=== PATIENT | male | born 1960 | race Caucasian/White ===

== ENCOUNTER 2020-02-16 21:24 | Inpatient (IN) | payer MEDICAID ==
[~2020-02-16] VITALS: Ht 180.3 cm; Wt 54.3 kg
[2020-02-16] MEDS ORDERED: SODIUM CHLORIDE FLUSH 10ML SYR IVF ONE (21:30)
[2020-02-16] MEDS ORDERED: SODIUM CHLORIDE 0.9% 1,000 ML IV ONE (21:30)
--- NOTE | 2020-02-16 21:58 | NUR ---
pt bib ems from [facility]. pt having increased lethargy and disoriented. 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 pt has history of cirrosis as well. pt recieved 4mg morphine at 1700, rocephin iv at 1615, lactulose at 1835, and total 3 liter bolus for hypotention. pt placed on all monitors, another liter bag hung, warm blanket provided, erp evaluated pt, pt is a/ox4 at this time but is intermittently confused on place.
[2020-02-16] MEDS ORDERED: SPIR100T4 PO (22:04)
[2020-02-16] MEDS ORDERED: OXYC5TAB2 PO (22:04)
[2020-02-16] MEDS ORDERED: OMEP20CA20 PO (22:04)
[2020-02-16] MEDS ORDERED: TAMS-11 PO (22:04)
[2020-02-16 22:05] LABS: BASOPHILS % (AUTO) 1 % (0-1); EOSINOPHILS % (AUTO) 1 % (1-7); LYMPHOCYTES % (AUTO) 13 % (22-44); MEAN PLATELET VOLUME 8.7 fL (7.4-10.4); MONOCYTES % (AUTO) 12 % (2-9); NEUTROPHILS % (AUTO) 74 % (42-75); PLATELET COUNT 107 x10^3/uL (130-400); RED BLOOD COUNT 4.66 x10^6/uL (4.38-5.82)
[2020-02-16] MEDS ORDERED: MULT1TAB86 PO (22:05)
[2020-02-16] MEDS ORDERED: LACT20SO13 PO (22:05)
[2020-02-16] MEDS ORDERED: FURO40TA6 PO (22:05)
[2020-02-16 22:07] LABS: MD NO
[2020-02-16 22:10] LABS: INTERNATIONAL NORMALIZED RATIO 1.27 (0.93-1.1); PROTHROMBIN TIME 13.4 Seconds (9.6-11.5)
[2020-02-16 22:13] LABS: ALANINE AMINOTRANSFERASE 20 U/L (12-78); ALBUMIN 2.8 g/dL (3.4-5.0); ANION GAP 7 mmol/L (5-15); CALCIUM 8.6 mg/dL (8.5-10.1); CHLORIDE 102 mmol/L (98-107); CREATININE 1.18 mg/dL (0.7-1.3)
[2020-02-16 22:15] LABS: ALKALINE PHOSPHATASE 198 U/L (45-117)
--- NOTE | 2020-02-16 22:55 | NUR ---
pt snoring in bed, respirations even/unlabored, pt on all monitors, iv fluids still running
--- NOTE | 2020-02-16 23:40 | NUR ---
pt still snoring in [facility], housekeeping called for hospital bed
--- NOTE | 2020-02-17 00:06 | NUR ---
pt placed on hospital bed, denies pain or needs at this time, all monitors in place
--- NOTE | 2020-02-17 00:56 | NUR ---
PT SLEEPING, RESP EVEN/UNLABORED, MONITORS IN PLACE
[2020-02-17] MEDS ORDERED: BISACODYL 10 MG SUPP PR PRN (02:30)
[2020-02-17] MEDS ORDERED: OXYcodone IR 5MG TABLET PO PRN (02:30)
[2020-02-17] MEDS ORDERED: PROMETHAZINE 25 MG/ML, 1ML IM PRN (02:30)
[2020-02-17] MEDS ORDERED: ONDANSETRON ODT 4 MG PO PRN (02:30)
[2020-02-17] MEDS ORDERED: morphine SULFATE 10 MG/ML, 1ML IVPush PRN (02:30)
[2020-02-17] MEDS ORDERED: LACTULOSE 3.3 GM/5 ML ORAL.SOL RC ONE (02:30)
[2020-02-17] MEDS ORDERED: POLYETHYLENE GLYCOL 17 GM PACKET PO PRN (02:30)
[2020-02-17] MEDS ORDERED: DOCUSATE 100 MG CAPSULE PO PRN (02:30)
[2020-02-17] MEDS ORDERED: hydrALAzine 20 MG/ML, 1ML IVPush PRN (02:30)
[2020-02-17] MEDS ORDERED: ONDANSETRON 2MG/ML, 2ML IVPush PRN (02:30)
--- NOTE | 2020-02-17 02:55 | NUR ---
PT SLEEPING, RESPIRATIONS EVEN/UNLABORED, MONITORS IN PLACE
[2020-02-17 03:40] LABS: BASOPHILS % (AUTO) 1 % (0-1); EOSINOPHILS % (AUTO) 2 % (1-7); LYMPHOCYTES % (AUTO) 20 % (22-44); MD NO; MEAN CORPUSCULAR HEMOGLOBIN 30.1 pg (27.5-34.5); MEAN CORPUSCULAR HGB CONC 34.1 g/dL (33.2-36.2); MEAN PLATELET VOLUME 8.1 fL (7.4-10.4); MONOCYTES % (AUTO) 12 % (2-9); NEUTROPHILS % (AUTO) 66 % (42-75); PLATELET COUNT 83 x10^3/uL (130-400); RED BLOOD COUNT 4.27 x10^6/uL (4.38-5.82); RED CELL DISTRIBUTION WIDTH 15.9 % (9.4-14.8)
[2020-02-17] MEDS ORDERED: HEPARIN 5,000 UNITS/ML, 1ML ONE (03:46)
[2020-02-17 03:47] LABS: ALBUMIN 2.5 g/dL (3.4-5.0); ANION GAP 8 mmol/L (5-15); CALCIUM 8.3 mg/dL (8.5-10.1); CHLORIDE 105 mmol/L (98-107)
[2020-02-17 03:50] LABS: ALANINE AMINOTRANSFERASE 19 U/L (12-78); ALKALINE PHOSPHATASE 184 U/L (45-117); BILIRUBIN,TOTAL 1.9 mg/dL (0.2-1.0); CHOL/HDL RATIO 2.4; CHOLESTEROL, TOTAL 99 mg/dL (140-239); CREATININE 1.18 mg/dL (0.7-1.3); HDL CHOL % 42 % (26-37); HDL CHOLESTEROL (DIRECT) 42 mg/dL (40-60); LDL CHOLESTEROL,CALCULATED 44 mg/dL (54-169); TOTAL PROTEIN 6.6 g/dL (6.4-8.2); TRIGLYCERIDES 66 mg/dL (50-200); VLDL CHOLESTEROL 13 mg/dL (0-25)
[2020-02-17 03:56] LABS: FREE T4 (FREE THYROXINE) 1.21 ng/dL (0.76-1.46)
[2020-02-17] MEDS: SODIUM CHLORIDE 0.9% 1,000 ML IV SCH ×2 (04:01→11:41)
[2020-02-17] MEDS: ERTAPENEM 1 GM in SODIUM CHLORIDE 0.9% 50 ML IV SCH (04:11)
[2020-02-17] MEDS: LACTULOSE 20 GM/30 ML UDC PO SCH ×4 (04:11→20:06)
[2020-02-17] MEDS: HEPARIN 5,000 UNITS/ML, 1ML SQ SCH ×3 (04:11→17:47)
--- NOTE | 2020-02-17 04:15 | NUR ---
PT MEDICATED PER EMAR, PT UNDERSTANDING OF POC, NO OTHER NEEDS AT THIS TIME
--- NOTE | 2020-02-17 06:09 | NUR ---
PT RESTING IN BED, STATES NO NEEDS AT THIS TIME
--- NOTE | 2020-02-17 06:25 | NUR ---
pedro care provided with [employer]. pt had 1200 ml output
--- NOTE | 2020-02-17 06:57 | NUR ---
REPORT RECEIVED FROM IRIS WILDE. PT SLEEPING ON HOSPITAL BED W/ SIDE RAILS UPX2 AND CALL LIGHT IN REACH. NADER CONTRERAS. WILL CONTINUE TO MONITOR.
--- NOTE | 2020-02-17 07:37 | NUR ---
ATTEMPT TO CALL REPORT, RN UNAVAILABLE, WILL CALL BACK.
--- NOTE | 2020-02-17 07:43 | NUR ---
REPORT GIVEN TO ROHITH WILDE. PT IS READY FOR TRANSPORT AT THIS TIME W/ IVF INFUSING APPROPRIATELY.
[2020-02-17 08:49] VITALS: BP 97/66
[2020-02-17] MEDS: OMEPRAZOLE 20 MG CAPSULE.DR PO SCH (09:07)
[2020-02-17] MEDS: TAMSULOSIN 0.4 MG CAP.ER.24H PO SCH (09:07)
[2020-02-17 13:15] VITALS: BP 99/67
[2020-02-17 18:51] VITALS: BP 99/68
[2020-02-18 01:15] VITALS: BP 91/56
[2020-02-18] MEDS: HEPARIN 5,000 UNITS/ML, 1ML SQ SCH ×2 (02:32→10:04)
[2020-02-18] MEDS: ERTAPENEM 1 GM in SODIUM CHLORIDE 0.9% 50 ML IV SCH (03:36)
[2020-02-18] MEDS: LACTULOSE 20 GM/30 ML UDC PO SCH (09:31)
[2020-02-18] MEDS: OMEPRAZOLE 20 MG CAPSULE.DR PO SCH (09:34)
[2020-02-18] MEDS: TAMSULOSIN 0.4 MG CAP.ER.24H PO SCH (09:34)
[2020-02-18 09:39] VITALS: BP 104/68
[2020-02-18 13:02] VITALS: BP 100/64
== END 2020-02-18 15:58 | disposition home or self-care (01) | DRG 279 ==
LOC: ED 02-17 02:10 → EDIP 02-17 02:13 → 4WST 02-17 08:12 → 3WST 02-18 10:17 → DCLOUNGE 02-18 15:47
PROVIDERS: ADMIT Internal Medicine; ATTEND Hospitalist
DX: K72.90 Hepatic failure, unspecified without coma (principal); N17.0 Acute kidney failure with tubular necrosis; E72.20 Disorder of urea cycle metabolism, unspecified; K70.30 Alcoholic cirrhosis of liver without ascites; I10 Essential (primary) hypertension; I95.9 Hypotension, unspecified; I48.91 Unspecified atrial fibrillation; Z87.442 Personal history of urinary calculi; Z88.0 Allergy status to penicillin; Z88.8 Allergy status to other drugs, medicaments and biological substances; Z79.899 Other long term (current) drug therapy; Z79.891 Long term (current) use of opiate analgesic; Z79.01 Long term (current) use of anticoagulants; N39.0 Urinary tract infection, site not specified
CPT/HCPCS: 36415; 80053; 80061; 82140; 82962; 83036; 83605; 83735; 84100; 84145; 84439; 84443; 85025; 85610; 85730; 87040; 93005; 99291; G0378; J1335; J1644; J7030